=== PATIENT | female | born 1965 | race Caucasian/White ===

== ENCOUNTER → 2024-05-07 11:23 | Outpatient (BNVA) | payer OTHER, SELFPAY | PROVIDERS: PCP Family Medicine; Visit Provider Family Medicine | DX: Z00.00 Encounter for general adult medical examination without abnormal findings (principal); Z23 Encounter for immunization; D18.01 Hemangioma of skin and subcutaneous tissue; Z12.11 Encounter for screening for malignant neoplasm of colon; Z12.12 Encounter for screening for malignant neoplasm of rectum | CPT/HCPCS: 80053; 80061; 84443; 85025 ==